=== PATIENT | female | born 1980 | race Caucasian/White ===

== ENCOUNTER 2019-08-21 22:17 | Emergency (ER) | payer SELFPAY ==
[2019-08-22] MEDS ORDERED: BENZTROPINE MESYLATE 1 MG TABLET PO ONE (02:58)
--- NOTE | 2019-08-22 03:00 | ER Document Report ---
ED General - General Chief Complaint: Anxiety Stated Complaint: ANXIETY Time Seen by Provider: 08/22/19 02:34 Notes: Patient is a 38-year-old female that comes to the emergency department for chief complaint of possible medication side effects. She states that she woke up shaking, she states that she suddenly started to "randomly stick my tongue out and I could not pull it back in". She states that she felt like her "glands were grabbing at my throat". She states that she called EMS. She states that after she arrived she did start to improve, symptoms gradually resolved, now symptoms are gone. She states that she did feel a tightness in her chest, this was around 5 PM last night, she denies vomiting, fever, injury, shortness of br eath, or any other complaints. She denies tightness in her chest since then, she states the tongue symptoms have completely resolved as well. She states that she was just started on Haldol, she took 10 mg last night. She states previously she was on Seroquel but her psychiatrist switched her to this. She has a history of bipolar disorder. She also reports a history of substance abuse but states that she has not used alcohol or crack cocaine since June. TRAVEL OUTSIDE OF THE [place] IN LAST 30 DAYS: No - Related Data Allergies/Adverse Reactions: No Known Allergies Allergy (Verified 07/20/15 11:59) Past Medical History - General Information source: Patient - Social History Smoking Status: Current Every Day Smoker Frequency of alcohol use: Former heavy Drug Abuse: Prescription drugs Lives with: Family Family History: Reviewed & Not Pertinent Patient has suicidal ideation: No Patient has homicidal ideation: No Neurological Medical History: Denies: Hx Cerebrovascular Accident, Hx Migraine, Hx Seizures Renal/ Medical History: Denies: Hx Peritoneal Dialysis GI Medical History: Denies: Hx Gastritis, Hx Gastroesophageal Reflux Disease Psychiatric Medical History: Reports: Hx Anxiety, Hx Bipolar Disorder, Hx Depression Past Surgical History: Reports: Hx Section, Hx Orthopedic Surgery - L ankle - Immunizations Hx Diphtheria, Pertussis, Tetanus Vaccination: Yes Review of Systems - Review of Systems Constitutional: No symptoms reported EENT: See HPI Cardiovascular: See HPI Respiratory: No symptoms reported Gastrointestinal: No symptoms reported Genitourinary: No symptoms reported Female Genitourinary: No symptoms reported Musculoskeletal: No symptoms reported Skin: No symptoms reported Hematologic/Lymphatic: No symptoms reported Neurological/Psychological: See HPI Physical Exam - Vital signs Vitals: Temp Pulse Resp BP Pulse Ox 97.8 F 109 H 20 139/80 H 100 08/21/19 22:22 08/21/19 22:22 08/21/19 22:22 08/21/19 22:22 08/21/19 22:22 - Notes Notes: GENERAL: Uncomfortable, restless, agitated HEAD: Normocephalic, atraumatic. EYES: Pupils equal, round, slightly dilated, and reactive to light. Extraocular movements intact. ENT: Oral mucosa moist, tongue midline. Oropharynx unremarkable. Airway patent. LUNGS: Clear to auscultation bilaterally, no wheezes, rales, or rhonchi. No respiratory distress. HEART: Regular rate and rhythm. No murmur ABDOMEN: Soft, non-tender. Non-distended. Bowel sounds present in all 4 quadrants. GENITOURINARY: Deferred EXTREMITIES: Moves all 4 extremities spontaneously. No edema, normal radial and dorsalis pedis pulses bilaterally. No cyanosis. BACK: no cervical, thoracic, lumbar midline tenderness. No saddle anesthesia, normal distal neurovascular exam. Moves all extremities in full range of motion. NEUROLOGICAL: Alert and oriented x3. Normal speech. Cranial nerves II through XII grossly intact. PSYCH: Somewhat agitated SKIN: Warm, dry, normal turgor. No rashes or lesions noted. Course - Re-evaluation Re-evalutation: On arrival patient was having extrapyramidal symptoms with frequently sticking out her tongue and reporting that she was having difficulty controlling this. Patient did appear to be distressed about this. This did rapidly improve and started resolving, patient was given Cogentin and Ativan. Symptoms did completely resolve. Based on her being started on Haldol with the symptoms and with her resolution I do suspect that she was having extrapyramidal symptoms secondary to the Haldol. She did report that her chest felt tight but her troponin is negative more than 8 hours after this started, EKG unremarkable, CBC unremarkable. CMP does show some elevated LFTs, patient does have a history of alcohol abuse but has stopped, she has no abdominal pain, she has no current symptoms. Patient did tell me ahead of time that over the past couple of days she was given a Percocet for a random pain by a friend, she told me this before the drug screen, this did show opiates but was unconcerned otherwise. I did discuss with patient at length. Patient states she has stopped drinking alcohol, she understands that she is not to take other medications not prescribed to her (especially controlled ones), and she will stop her Haldol. She states she will call her provider, continue her BuSpar which is also new, and she will return for any concerning symptoms. She denies SI or HI and she states appreciation for her care. Stable and well-appearing at time of discharge. Patient had been discussed with Dr. Martinez. - Vital Signs Vital signs: Temp Pulse Resp BP Pulse Ox 97.4 F 99 17 131/87 H 100 08/22/19 04:43 08/22/19 04:43 08/22/19 04:43 08/22/19 04:43 08/22/19 04:43 - Laboratory Result Diagrams: 08/22/19 03:38 08/22/19 03:38 Laboratory results interpreted by me: 08/22/19 03:38 Creatinine 0.44 L AST 78 H ALT 118 H Acetaminophen < 10 L - EKG Interpretation by Me Additional EKG results interpreted by me: EKG shows sinus rhythm at a rate of 86, QTC 474, normal axis, no T wave inversions or ST segment changes in consecutive leads Discharge - Discharge Clinical Impression: Medication side effects Condition: Stable Disposition: HOME, SELF-CARE Instructions: Anxiety ([facility]) Additional Instructions: Your evaluation tonight is consistent with extrapyramidal symptoms caused by the Haldol. Please stop the Haldol. Follow-up with your psychiatrist for additional evaluation and adjustment of your medications. Also do not take any medications that are not prescribed to you. Your work-up does not show any concerning symptoms tonight. Return the emergency department for any concerning or worsening symptoms including chest pain, difficulty breathing, passing out, fever, or any other concerning symptoms. Forms: Return to Work
[2019-08-22 03:50] LABS: ABSOLUTE BASOPHILS # (AUTO) 0.1 10^3/uL (0.0-0.2); ABSOLUTE EOSINOPHILS # (AUTO) 0.2 10^3/uL (0.0-0.6); ABSOLUTE MONOCYTES (AUTO) 0.8 10^3/uL (0.1-1.4); SEGMENTED NEUTROPHILS % (AUTO) 48.6 % (42-78); TOTAL CELLS COUNTED % (AUTO) 100 %
--- NOTE | 2019-08-22 03:54 | RADIOLOGY REPORT (SQ) ---
EXAM DESCRIPTION: XR CHEST 1 VIEW COMPLETED DATE/TME: 08/22/2019 02:59 CLINICAL HISTORY: 38 years, Female, chest pain COMPARISON: 03/20/2016 chest NUMBER OF VIEWS: 1 TECHNIQUE: Portable chest LIMITATIONS: None. FINDINGS: Heart size normal. Lungs clear. No pneumothorax IMPRESSION: Negative chest copyright 2010 [employer]- All Rights Reserved
[2019-08-22 03:57] LABS: ABSOLUTE LYMPHOCYTES (AUTO) 4.1 10^3/uL (0.5-4.7); ABSOLUTE NEUT (AUTO) 4.9 10^3/uL (1.7-8.2); BASOPHILS % (AUTO) 0.9 % (0-2); EOSINOPHILS % (AUTO) 1.7 % (0-6); HEMATOCRIT 37.4 % (36.0-47.0); HEMOGLOBIN 13.3 g/dL (12.0-15.5); LYMPHOCYTES % (AUTO) 40.7 % (13-45); MEAN CORPUSCULAR HEMOGLOBIN 30.8 pg (27.0-33.4); MEAN CORPUSCULAR HGB CONC 35.6 g/dL (32.0-36.0); MEAN CORPUSCULAR VOLUME 87 fl (80-97); MONOCYTES % (AUTO) 8.1 % (3-13); PLATELET COUNT 265 10^3/uL (150-450); RED BLOOD COUNT 4.33 10^6/uL (3.72-5.28); RED CELL DISTRIBUTION WIDTH 13.4 % (11.5-14.0)
[2019-08-22 04:00] LABS: APPEARANCE,URINE CLEAR; BILIRUBIN,URINE NEGATIVE (NEGATIVE); COLOR,URINE STRAW; GLUCOSE, URINE NEGATIVE (NEGATIVE); KETONES,URINE NEGATIVE (NEGATIVE); LEUKOCYTE ESTERASE,URINE NEGATIVE (NEGATIVE); NITRITE,URINE NEGATIVE (NEGATIVE); PROTEIN,URINE NEGATIVE (NEGATIVE); URINE SPECIFIC GRAVITY 1.004; UROBILINOGEN,URINE NEGATIVE mg/dL (<2.0)
[2019-08-22 04:08] LABS: ALBUMIN 3.8 g/dL (3.5-5.0); ALKALINE PHOSPHATASE 108 U/L (38-126); ANION GAP 7 (5-19); ASPARTATE AMINO TRANSFERASE 78 U/L (14-36); BILIRUBIN,DIRECT 0.3 mg/dL (0.0-0.4); BILIRUBIN,TOTAL 0.4 mg/dL (0.2-1.3); BLOOD UREA NITROGEN 11 mg/dL (7-20); CALCIUM 9.4 mg/dL (8.4-10.2); CARBON DIOXIDE 28 mmol/L (22-30); CHLORIDE 107 mmol/L (98-107); GLUCOSE 80 mg/dL (75-110); POTASSIUM 3.8 mmol/L (3.6-5.0); SALICYLATE 10.4 mg/dL (2.0-20.0); TOTAL PROTEIN 6.8 g/dL (6.3-8.2)
[2019-08-22 04:14] LABS: ACETAMINOPHEN < 10 ug/mL (10-30); ALCOHOL < 10 mg/dL (NONE DETECTED)
[2019-08-22 04:17] LABS: URINE AMPHETAMINES SCREEN NEGATIVE; URINE BARBITURATES SCREEN NEGATIVE; URINE BENZODIAZEPINES SCREEN NEGATIVE; URINE COCAINE SCREEN NEGATIVE; URINE MARIJUANA (THC) SCREEN NEGATIVE; URINE METHADONE SCREEN NEGATIVE; URINE PHENCYCLIDINE SCREEN NEGATIVE
[2019-08-22] MEDS ORDERED: LORAZEPAM 1 MG TABLET PO ONE (04:42)
[2019-08-22 04:49] VITALS: BP 131/87
--- NOTE | 2019-08-22 08:34 | EKG REPORT ---
SEVERITY:- NORMAL ECG - SINUS RHYTHM POOR R WAVE PROGRESSION ANTERIOR PRECORDIAL LEADS CONSIDER OLD ANTERIOR [place]. : Confirmed by: Mg Vincent MD 22-Aug-2019 08:33:58
== END 2019-08-22 04:50 | disposition home or self-care (01) ==
LOC: ER 22:17
DX: T43.4X5A Adverse effect of butyrophenone and thiothixene neuroleptics, initial encounter (principal); F41.9 Anxiety disorder, unspecified; Y92.9 Unspecified place or not applicable; Z79.899 Other long term (current) drug therapy; F19.10 Other psychoactive substance abuse, uncomplicated; F17.200 Nicotine dependence, unspecified, uncomplicated
CPT/HCPCS: 36415; 71045; 80053; 80307; 81001; 84484; 84703; 85025; 93005; 93010; 99284